=== PATIENT | female | born 1940 | race Caucasian/White ===

== ENCOUNTER → 2016-08-28 | Outpatient (CLI) | payer BC ==
[~2016-08-28] MED LIST: ACYC-57 PO; BROM0.07 OPR; CHOL1CAP57 PO; COEN1CAP37 PO; CYAN100020 PO; MISCCAP80 PO; MULT-506 PO; SIMV20TA2 PO
== END | disposition home or self-care (01) ==
LOC: C.RDSM 10:58
PROVIDERS: ATTEND Physical Medicine & Rehabilitation Sports Medicine
DX: M25.561 Pain in right knee (principal)

== ENCOUNTER → 2016-11-14 | Outpatient (CLI) | payer BC ==
[~2016-11-14] MED LIST changes: -ACYC-57 PO; +ACYC1CAP8 PO; +OPTIRAY 320 IV PRN
--- NOTE | 2016-11-14 10:45 | DIAGNOSTIC IMAGING REPORT ---
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 Images are reviewed in the axial, sagittal, and coronal planes. IV contrast was administered without complication. A dose lowering technique was utilized adhering to the principles of ALARA. CT DOSE: 733.70 mGy.cm FINDINGS: Thyroid: There is a 3 mm hypodense left lobe thyroid nodule. Thoracic aorta: The thoracic aorta is normal in course and caliber, noting standard 3-vessel arch anatomy. No aneurysm or dissection is seen. Pulmonary vasculature: The pulmonary trunk is normal in caliber. There are no central filling defects identified to suggest pulmonary embolus. Note that this examination was not protocoled for the evaluation of pulmonary emboli. HEART: The heart is normal in size and configuration, without pericardial effusion. Lungs and pleural spaces: No pleural effusions are visualized. There is no focal pulmonary consolidation. There is a stable 4 x 2 mm right upper lobe pulmonary nodule as visualized in image #[id number]. There is a 5 x 2 mm right upper lobe pulmonary nodule as visualized in image #[id number]. This was likely present on the prior study but is difficult to evaluate due to respiratory motion on the prior examination Mediastinum: There is no mediastinal lymphadenopathy. Angy: There is no evidence of pathologic adenopathy Axilla: There is no evidence of pathologic adenopathy Upper abdomen: Partially visualized upper abdominal viscera is within normal limits. Skeletal structures: There are no lytic or blastic osseous lesions. IMPRESSION: No acute intrathoracic findings. No evidence of pathologic adenopathy. Electronically signed by: Zack Shaw M.D. 11/14/2016 10:44 AM Dictated Date/Time: 11/14/2016 10:39 AM
--- NOTE | 2016-11-14 10:47 | DIAGNOSTIC IMAGING REPORT ---
CT SCAN OF THE ABDOMEN AND PELVIS WITH IV CONTRAST CLINICAL HISTORY: Lymphoma. COMPARISON STUDY: Abdominal CT dated 11/22/2015. PET/CT dated 09/28/2013. TECHNIQUE: Following the IV administration of 119 cc of Optiray 320, CT scan of the abdomen and pelvis is performed from the lung bases to the proximal femora. Images are reviewed in the axial, sagittal, and coronal planes. IV contrast was administered without complication. Automated dose control exposure was utilized. A dose lowering technique was utilized adhering to the principles of ALARA. FINDINGS: Lung bases: The heart is normal in size and without pericardial effusion. A 1.8 cm right-sided pericardial cyst is incidentally noted and unchanged. The lung bases are clear. Liver: The contrast-enhanced liver is normal in size, contour, and attenuation. There is no intrahepatic biliary ductal dilatation. The hepatic veins and portal veins are patent. Gallbladder: Contracted. Spleen: Normal in size and attenuation common measuring 10.7 cm in length. Pancreas: Unremarkable. Adrenal glands: A 1.3 cm left adrenal nodule is unchanged from prior examinations an abdominal significance. The right adrenal gland is unremarkable. Kidneys: The contrast enhanced kidneys are normal in size and without hydronephrosis. The kidneys enhance symmetrically. Abdominal vasculature: The abdominal aorta is normal in course and caliber noting mild to moderate atherosclerotic calcification. Bowel: The small bowel and colon are normal in course and caliber. There is moderate colonic fecal retention. The appendix is well-visualized and normal. Peritoneum: There is no intraperitoneal free air or abdominal ascites. Lymphadenopathy: No pathologically enlarged lymph nodes are identified in the abdomen or pelvis. Mild stranding the retroperitoneal region is likely treatment related. Pelvic viscera: The bladder, uterus, and adnexa are normal as imaged. Skeletal structures: The skeletal structures are osteopenic. There is mild to moderate lumbosacral spondylosis. No lytic or blastic lesions are seen. IMPRESSION: 1. There are no pathologically enlarged lymph nodes identified in the abdomen or pelvis. 2. The spleen is normal in size. 3. Moderate constipation. Electronically signed by: Shukri Mcleod M.D. 11/14/2016 10:45 AM Dictated Date/Time: 11/14/2016 10:37 AM
== END | disposition home or self-care (01) ==
LOC: C.CTS 09:08
PROVIDERS: ATTEND Internal Medicine Hematology
DX: C82.18 Follicular lymphoma grade II, lymph nodes of multiple sites (principal); K59.00 Constipation, unspecified

== ENCOUNTER → 2016-12-17 | Outpatient (CLI) | payer BC ==
[~2016-12-17] MED LIST changes: -OPTIRAY 320 IV PRN
--- NOTE | 2016-12-17 14:42 | DIAGNOSTIC IMAGING REPORT ---
RIGHT HIP UNILATERAL 2 VIEWS CLINICAL HISTORY: Right hip pain. COMPARISON: Skeletal survey December 26, [address] of the abdomen and pelvis November 14, 2016. FINDINGS: Alignment of the right hip is anatomic. No fracture or suspicious lesion is present. There is moderate joint space narrowing and osteophytosis the right hip. IMPRESSION: 1. No acute fracture. 2. Moderate osteoarthritis of the right hip. Electronically signed by: Sidney Kidd M.D. 12/17/2016 2:41 PM Dictated Date/Time: 12/17/2016 2:40 PM
== END | disposition home or self-care (01) ==
LOC: C.RADBC 14:20
PROVIDERS: ATTEND Family Medicine
DX: M25.551 Pain in right hip (principal)

== ENCOUNTER → 2017-02-19 | Outpatient (CLI) | payer BC ==
[~2017-02-19] MED LIST changes: +ACYC-57 PO; -ACYC1CAP8 PO
== END | disposition home or self-care (01) ==
LOC: C.MAMM 13:28
PROVIDERS: ATTEND Family Medicine
DX: M85.89 Other specified disorders of bone density and structure, multiple sites (principal)

== ENCOUNTER → 2017-02-25 | Outpatient (CLI) | payer BC ==
--- NOTE | 2017-02-26 15:09 | MAMMOGRAPHY REPORT ---
BILATERAL DIGITAL SCREENING MAMMOGRAM TOMOSYNTHESIS WITH CAD: 02/25/2017 CLINICAL HISTORY: Routine screening. Patient has no complaints. TECHNIQUE: Breast tomosynthesis in addition to standard 2D mammography was performed. Current study was also evaluated with a Computer Aided Detection (CAD) system. COMPARISON: Comparison is made to exams dated: 02/20/2016 mammogram, 02/16/2015 mammogram, 4 mammogram, 02/12/2013 mammogram, 02/12/2012 mammogram, and 02/08/2011 mammogram - [facility]. BREAST COMPOSITION: The tissue of both breasts is heterogeneously dense, which may obscure small mas ses. FINDINGS: The parenchymal pattern is similar to prior mammograms. There are a few stable benign calc ifications in the breasts. No new suspicious mass, architectural distortion or cluster of microcalci fications is seen. The hub of the Port-A-Cath projects over the superior left pectoralis muscle on t he MLO view. IMPRESSION: ACR BI-RADS CATEGORY 1: NEGATIVE There is no mammographic evidence of malignancy. A 1 year screening mammogram is recommended. The pa tient will receive written notification of the results. Approximately 10% of breast cancers are not detected with mammography. A negative mammographic report should not delay biopsy if a clinically suggestive mass is present. Michelle Olguin M.D. ay/:02/25/2017 16:15:54 [place] Grinder: Narda [facility](Migel)(Naresh)(BD), [facility] letter sent: Normal 1/2 BI-RADS Code: ACR BI-RADS Category 1: Negative
== END | disposition home or self-care (01) ==
LOC: C.MAMM 13:15
PROVIDERS: ATTEND Family Medicine
DX: Z12.31 Encounter for screening mammogram for malignant neoplasm of breast (principal)

== ENCOUNTER → 2017-08-22 | Outpatient (CLI) | payer BC ==
--- NOTE | 2017-08-22 10:35 | DIAGNOSTIC IMAGING REPORT ---
SOFT TISS HEAD/NECK-THYROID CLINICAL HISTORY: 76 years-old Female with NECK MASS. Acute swelling of the neck COMPARISON: CT chest 11/14/2016 TECHNIQUE: Multiple real time sonographic images of the thyroid were obtained accessing burnett scale appearance and color doppler flow. FINDINGS: The area of concern within the midline inferior neck demonstrates no focal abnormality. MEASUREMENTS: Right lobe: 5.1 x 2.0 x 1.6 cm Left lobe: 5.3 x 1.5 x 1.6 cm Isthmus: 0.5 cm PARENCHYMA: The thyroid parenchymal echotexture is generally homogeneous. NODULES: Hypoechoic foci measuring up to 2 mm suggest colloid cysts without suspicious nodules identified. Hypoechoic circumscribed homogeneous vascular nodule of the mid pole left thyroid measures 0.8 x 0.5 x 0.7 cm. Probable colloid cyst of the upper left thyroid measures 0.4 cm. No suspicious nodules seen within the left thyroid. IMPRESSION: Subcentimeter colloid cysts and a low suspicion 8 mm solid hypoechoic left thyroid nodule are noted without suspicious thyroid nodules identified. The above report was generated using voice recognition software. It may contain grammatical, syntax or spelling errors. Electronically signed by: Dharmesh Mckeon M.D. 08/22/2017 10:34 AM Dictated Date/Time: 08/22/2017 10:29 AM
== END | disposition home or self-care (01) ==
LOC: C.ULTR 09:58
PROVIDERS: ATTEND Family Medicine
DX: R22.1 Localized swelling, mass and lump, neck (principal); E04.2 Nontoxic multinodular goiter

== ENCOUNTER → 2017-10-17 | Outpatient (CLI) | payer BC ==
[2017-10-17 10:50] LABS: EOS % 2.7 %; EOS ABS # 0.06 K/uL (0-0.5); HEMOGLOBIN 12.8 g/dL (12.0-16.0); LYMPH % 39.5 %; LYMPH ABS # 0.88 K/uL (1.2-3.4); MEAN CORPUSCULAR HEMOGLOBIN 34.6 pg (25-34); MEAN CORPUSCULAR HGB CONC 34.6 g/dl (32-36); MEAN PLATELET VOLUME 8.9 fL (7.4-10.4); MONO % 12.1 %; MONO ABS # 0.27 K/uL (0.11-0.59); NEUT % 45.7 %; NEUT ABS # 1.02 K/uL (1.4-6.5); PLATELET COUNT 121 K/uL (130-400); RED CELL DISTRIBUTION WIDTH CV 13.5 % (11.5-14.5); RED CELL DISTRIBUTION WIDTH SD 48.7 fL (36.4-46.3); WHITE BLOOD COUNT 2.23 K/uL (4.8-10.8)
[2017-10-17 11:30] LABS: ALBUMIN 3.7 gm/dl (3.4-5.0); ALKALINE PHOSPHATASE 63 U/L (45-117); ALT/SGPT 13 U/L (12-78); AST/SGOT 14 U/L (15-37); BLOOD UREA NITROGEN 15 mg/dl (7-18); CALCIUM 8.9 mg/dl (8.5-10.1); CARBON DIOXIDE 29 mmol/L (21-32); CREATININE 0.89 mg/dl (0.60-1.20); GLUCOSE 88 mg/dl (70-99); POTASSIUM 4.1 mmol/L (3.5-5.1); SODIUM 139 mmol/L (136-145); TOTAL PROTEIN 6.8 gm/dl (6.4-8.2)
--- NOTE | 2017-11-03 14:09 | CODING QUERY NO DIAGNOSIS ---
TREATMENT RENDERED WITHOUT A DIAGNOSIS To promote full compliance with coding requirements relating to patient care, physician participation is requested in all cases of water softener installer uncertainty. Please assist us with providing a diagnosis/symptom for the test(s) below: A diagnosis/symptom was not documented on your Order. A valid diagnosis/symptom is required to bill all insurances. Please remember that we are unable to code a diagnosis of rule out, probable, possible, questionable, or suspected. Tests that require a diagnosis: DOS: 10/17/17 * CBC W/ AUTO DIFF DIAGNOSIS: * CMP DIAGNOSIS: * IMMUNOGLOBULIN G,A,M DIAGNOSIS: * LDH DIAGNOSIS: Provider Signature: Date: Thank you Jaja Fatima Health Information Management Once completed, please kindly fax back to [phone] For questions please call [phone]
== END | disposition home or self-care (01) ==
LOC: C.LABSPEC 10:36
PROVIDERS: ATTEND Internal Medicine Hematology & Oncology
DX: C82.83 Other types of follicular lymphoma, intra-abdominal lymph nodes (principal); D80.1 Nonfamilial hypogammaglobulinemia

== ENCOUNTER 2019-12-31 06:10 | Observation (INO) ==
--- NOTE | 2019-12-03 10:35 | PAT Medication Instructions ---
Medication Instructions Date of Service December 03, 2019 Home Medications Bacillus coagulans 10 billion cell capsule,delayed release 30 cell PO QAM cholecalciferol (vitamin D3) 50 mcg (2,000 unit) capsule 2,000 units PO QAM cinnamon bark 500 mg capsule 1,000 mg PO QAM multivitamin 1 tab PO QAM simvastatin 20 mg tablet 20 mg PO QAM omega 6-cjf-mxt-fish oil 1,000 mg (120 mg-180 mg) capsule 1 cap PO QAM coenzyme Q10 [Co Q-10] 200 mg PO QAM cyanocobalamin (vitamin B-12) 1,000 mcg PO QAM STOP taking 2 weeks before surgery (or as soon as possible if surgery is within 2 weeks) cinnamon bark 500 mg capsule 1,000 mg PO QAM omega 8-ahr-rug-fish oil 1,000 mg (120 mg-180 mg) capsule 1 cap PO QAM coenzyme Q10 [Co Q-10] 200 mg PO QAM DO NOT take the morning of surgery Bacillus coagulans 10 billion cell capsule,delayed release 30 cell PO QAM cholecalciferol (vitamin D3) 50 mcg (2,000 unit) capsule 2,000 units PO QAM multivitamin 1 tab PO QAM cyanocobalamin (vitamin B-12) 1,000 mcg PO QAM Take morning of surgery With a small sip of water, OTHERWISE NOTHING TO EAT OR DRINK AFTER MIDNIGHT: simvastatin 20 mg tablet 20 mg PO QAM Other Notes If you have any questions please call us at [phone] or [phone] or [phone] or [phone]
--- NOTE | 2019-12-08 14:53 | Anesthesiology Consultation ---
Date of Service December 08, 2019 Assessment & Plan (1) Encounter for pre-operative examination: COVID Status: As of 12/07 assessment, patient denies travel to endemic area, known exposure/sick contacts, or symptoms of COVID19. Patient instructed that they and their household members must follow strict social distancing guidelines, wear a mask in public and avoid travel for 14 days prior to surgery. Preoperative COVID19 testing to be completed prior to surgery per surgeon's arr angements. Patient made aware to self-isolate as much as possible between COVID testing and surgery. Patient's A-port is currently occluded and is to be replaced 12/13 at [facility]. Chart Review Chart Review: Acceptable Risk for Surgery (pending surgeon-ordered PCP clearance) and Patient seen in Pre Admission Testing Teaching & Discussion Instructed NPO after midnight before surgery, except medications with 15 cc of water. Medication instructions provided according to the PAT guidelines. History Surgery Operation Date: 12/31/19 08:15 Proposed Procedures p Right Total Hip Arthroplasty - Andrzej Greco MD Height/Weight Height: 5 ft 7 in Weight: 84.7 kg Allergies Allergy/AdvReac Type Severity Reaction Status Date / Time acetaminophen Allergy Mild VOMITING Verified 12/01/19 15:51 WITH PERCOCET - OKAY TYLENOL oxycodone Allergy Mild VOMITING Verified 12/01/19 15:51 amoxicillin AdvReac Mild diarrhea Verified 12/01/19 15:51 clavulanic acid AdvReac Mild diarrhea Verified 12/01/19 15:51 lisinopril AdvReac Mild GI SYMPTOMS Verified 12/01/19 15:51 losartan AdvReac Mild GI SYMPTOMS Verified 12/01/19 15:51 paroxetine AdvReac Mild GI SYMPTOMS Verified 12/01/19 15:51 Medications Home Medications Medication Instructions Recorded Confirmed Last Taken Bacillus coagulans 10 billion cell 30 cell PO QAM cap 02/04/19 12/01/19 Unknown capsule,delayed release cholecalciferol (vitamin D3) 50 2,000 units PO QAM 02/04/19 12/01/19 Unknown mcg (2,000 unit) capsule cinnamon bark 500 mg capsule 1,000 mg PO QAM cap 02/04/19 12/01/19 Unknown multivitamin 1 tab PO QAM 02/04/19 12/01/19 Unknown simvastatin 20 mg tablet 20 mg PO QAM 02/04/19 12/01/19 Unknown omega 6-lgx-krs-fish oil 1,000 mg 1 cap PO QAM 11/04/19 12/01/19 Unknown (120 mg-180 mg) capsule coenzyme Q10 [Co Q-10] 200 mg PO QAM 11/30/19 12/01/19 Unknown cyanocobalamin (vitamin B-12) 1,000 mcg PO QAM 11/30/19 12/01/19 Unknown Past Medical History Medical History Acquired immunoglobulin deficiency CAD (coronary artery disease) Follows with Dr. Siegel- per records- LAD 50% lesion- medically managed History of chemotherapy finished in 2013 > port to left chest > with new one to be placed dec [address] cruz Hx of non-Hodgkin's lymphoma Remission since 2013 Hyperlipidemia Hypertension Per records Long-term current use of intravenous immunoglobulin (IVIG) Every 8 weeks at [facility] Pedal edema Chronic Port-A-Cath in place left chest wall. Currently occluded and to have replaced on 12/[address] Cruz at [facility]. Previously placed for chemotherapy for lymphoma, now uses for IVIG treatments. Thyroid nodule just had checked recently Exercise / Class Metabolic Activity II 4-5 Yardwork/Stairs/Walk up hill (Has 28 steps in her townhouse, does daily without CP or SOB) Past Family History Family History Father , age 88 with dementia Pituitary tumor Endocrine problem Dementia Mother , age 90 of ITP Anemia Colorectal cancer Grandmother (Maternal) Heart trouble Grandfather (Maternal) Lung cancer Past Surgical History Surgical History History of bilateral fallopian tube excision History of cardiac cath 2011 due to a finding on stress test > no stents History of colonoscopy History of esophagogastroduodenoscopy (EGD) S/P cataract surgery bilat S/P ectopic S/P surgical removal of pilonidal cyst (1963) 1964 S/P tooth extraction wisdom teeth Past Anesthesia History No Hx of Anesthesia Complications and No Family Hx of Anesthesia Complications History of PONV No Hx of PONV and No Hx of Motion Sickness Social History Smoking Status: Former smoker tobacco type: cigarettes Do You Dip or Chew Tobacco: No Smoking End Date: 50 yrs ago Hx Alcohol Use: Yes Alcohol type: wine alcohol intake frequency: a few times a week Hx Substance Use: No substance use type: does not use Review of Systems Pt denies any recent chest pain, shortness of breath, palpitations, cough, fever, URI, or uncontrolled acid reflux. Physical Exam Vital Signs BP: 124/84 P: 63bpm SPO2: 97% RA T: 97.8 F R: 16 ENMT Mouth: + dental restorations (2-3 crowns, including upper incisors); no chipped teeth and no loose teeth Thyromental Distance: < 3.5 Finger Breadths (3) Mallampati Class: II Neck normal visual inspection; neck extension not limited Respiratory normal respiratory effort Auscultation: lungs clear to auscultation bilaterally Cardiovascular Rate/Rhythm: regular rate and regular rhythm Heart Sounds: no murmur Vessels: no carotid bruit Extremities: + edema (trace pedal B/L) Testing Laboratory Results 12/08/19 15:05 12/08/19 15:05 PT 10.9 Seconds (9.0-12.0) 12/08/19 15:05 INR 1.0 (0.9-1.1) 12/08/19 15:05 Hemoglobin A1c 5.6 % (4.5-5.6) 12/08/19 15:05 Urine Color Yellow 12/08/19 15:05 Urine Appearance Clear (Clear) 12/08/19 15:05 Urine pH 5.0 (4.5-7.5) 12/08/19 15:05 Ur Specific [place] 1.014 (1.000-1.030) 12/08/19 15:05 Urine Protein Negative (Negative) 12/08/19 15:05 Urine Glucose (UA) Negative (Negative) 12/08/19 15:05 Urine Ketones Negative (Negative) 12/08/19 15:05 Urine Nitrite Negative (Negative) 12/08/19 15:05 Ur Leukocyte Esterase Negative (Negative) 12/08/19 15:05 Blood Type A Positive 12/08/19 15:05 Antibody Screen NEGATIVE 12/08/19 15:05 Electrocardiogram Date: 12/08/19 Findings: + NSR @ (62bpm)
[2019-12-08 16:35] LABS: Basophils # (auto) 0.01 K/uL (0-0.2); Basophils % (auto) 0.3 %; Eosinophils # (auto) 0.03 K/uL (0-0.5); Eosinophils % (auto) 0.9 %; Hemoglobin 13.6 g/dL (12.0-16.0); Immature Granulocytes # (auto) 0.01 K/uL (0.00-0.02); Immature Granulocytes % (auto) 0.3 %; Lymphocytes # (auto) 0.95 K/uL (1.2-3.4); Lymphocytes % (auto) 29.6 %; Mean Corpuscular Hemoglobin 34.1 pg (25-34); Mean Corpuscular Hgb Conc 34.9 g/dL (32-36); Mean Corpuscular Volume 97.7 fL (80-100); Mean Platelet Volume 9.5 fL (7.4-10.4); Monocytes # (auto) 0.28 K/uL (0.11-0.59); Monocytes % (auto) 8.7 %; Neutrophils # (auto) 1.93 K/uL (1.4-6.5); Neutrophils % (auto) 60.2 %; Platelet Count 132 K/uL (130-400); RDW Standard Deviation 46.4 fL (36.4-46.3); Red Blood Count 3.99 M/uL (4.2-5.4); White Blood Count 3.21 K/uL (4.8-10.8)
[2019-12-08 16:41] LABS: Appearance Urine Clear (Clear); Bilirubin Urine Negative (Negative); Blood Urine Negative (Negative); Color Urine Yellow; Glucose Urine UA Negative (Negative); Ketones Urine Negative (Negative); Leukocyte Esterase Urine Negative (Negative); Nitrite Urine Negative (Negative); Protein Urine Negative (Negative); Specific Gravity Urine 1.014 (1.000-1.030); Urobilinogen Urine Negative (Negative)
[2019-12-08 16:46] LABS: Prothrombin Time 10.9 Seconds (9.0-12.0)
[2019-12-08 16:50] LABS: Albumin Level 3.8 gm/dl (3.4-5.0); BUN Creatinine Ratio 27.7 (10-20); Calcium 9.4 mg/dl (8.5-10.1); Creatinine Clr Calc Pharmacy 53.6 ml/min; Est GFR (African American) 67.7; Est GFR (Non-African American) 58.4; Potassium 3.9 mmol/L (3.5-5.1)
[2019-12-08 16:53] LABS: Albumin Globulin Ratio 1.1 (0.9-2); Bilirubin,Total 0.6 mg/dl (0.2-1); Globulin 3.4 gm/dl (2.5-4.0); Total Protein 7.2 gm/dl (6.4-8.2)
--- NOTE | 2019-12-08 18:22 | Electrocardiogram Report ---
Test Reason : Blood Pressure : / mmHG Vent. Rate : 062 BPM Atrial Rate : 062 BPM P-R Int : 168 ms QRS Dur : 090 ms QT Int : 424 ms P-R-T Axes : 057 034 055 degrees QTc Int : 430 ms Normal sinus rhythm Normal ECG When compared with ECG of 17-JUL-2014 19:48, Vent. rate has decreased BY 30 BPM Confirmed by Raul Laguerre ([id number]) on 12/08/2019 6:21:31 PM Referred By: Andrzej Greco Confirmed By:All Laguerre
[2019-12-09 05:53] LABS: Estimated Average Glucose 114 mg/dl; Hemoglobin A1C 5.6 % (4.5-5.6)
--- NOTE | 2019-12-09 09:36 | History & Physical Report ---
Date of Service December 09, 2019 Assessment & Plan (1) Osteoarthritis of right hip: PRE-OP Diagnosis: Right hip osteoarthritis Planned Procedure: Right total hip arthroplasty Plan: Patient is scheduled to undergo this procedure at the [facility] with Dr. Andrzej Greco on December 31, 2019. Risks and complications of the procedure such as: Infection, bleeding, pain, scarring, nerve blood vessel damage, weakness, wound problems, stiffness, incomplete relief of symptoms, hardware failure, hardware loosening, wear, fracture, tendon or ligament injury, dislocation, leg length inequality, blood clots, embolism, heart attack, stroke and were explained the patient had a visit today by Dr. Greco. Informed consent for the procedure was obtained. Patient also understands the risks of proceeding with surgical intervention during the COVID- 19 pandemic. Currently patient is asymptomatic and understands that she will be tested for COVID prior to the procedure. We have obtained preoperative medical clearance medications primary care provider Dr. Price. We will obtain a CBC with differential, complete metabolic panel, PT/INR, blood type and screen, urinalysis, urine culture, EKG, hemoglobin A1c, and a nasal culture for MRSA. Patient states she will obtain this testing prior to her preanesthesia appointment at the hospital this afternoon. During today's visit the patient and I discussed total hip precautions. We went over the total hip packet. We talked about discharge planning. Patient and I discussed antibiotic use after total joint replacement surgery. I advised her that the [facility] provides lectures via zoom in regards to joint placement surgery. I provided her with paperwork to obtain a handicap placard for her vehicle. Patient states that she has a walker she will bring with her on the day of her procedure. I advised her to purchase a hip kit from either [employer] or [employer]. We discussed abduction pillow use for 6 weeks postoperatively. I advised her that I will discharge her with a prescription for narcotic pain medication, and anti- inflammatory, and we discussed the use of extra strength Tylenol and aspirin for DVT prophylaxis. Patient states she would like to be discharged home if she does well with therapy, and will prefer to have in-home therapy for the first 2 weeks postoperatively. Patient is scheduled for 2-week postoperative follow-up with myself on January 15, 2020 at 1 PM. At that appointment we will discuss outpatient physical therapy and provide her with rehab protocol. Patient and her verbalized understanding of all information provided during today's visit. They thanked us for the care that they received. Patient and state if they have questions or concerns prior to the procedure, they will contact clinic. History of Present Illness Chief Complaint: Right hip pain Primary Care Provider: Pierre Price History of Present Illness (including history relevant to procedure): This 79-year-old female presents the clinic today for preoperative history and physical examination. Patient has persistent pain in the groin of the right hip that is nonradiating. It bothers her especially getting in and out of a car. Walking long distances are difficult for her. Inclines are worse for her than declines. She has tried taking NSAIDs and received multiple steroid injections into her hip under ultrasound guidance, both of which have given her only minimal relief. She denies any numbness or tingling, but states that she is having great difficulty performing activities of daily living due to hip pain. 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 Rectocele PERSONAL HISTORY OF COLONIC POLYPS UNSPECIFIED HEARING LOSS RAYNAUD'S SYNDROME Overweight BACK PAIN, CHRONIC ROUTINE GENERAL MEDICAL EXAMINATION AT A HEALTH CARE FACILITY History of dysplastic nevus Mixed dyslipidemia Cataract CAD (coronary artery disease), [place] coronary artery Former smoker Arthritis Pre-diabetes Family history of colon cancer Glaucoma suspect Hx of thyroid nodule History of basal cell carcinoma Hx of seborrheic keratosis Cystocele Spondylolisthesis Lumbar spine pain Senile hyperkeratosis Benign neoplasm of skin Actinic keratosis Carpal tunnel syndrome, bilateral Ulnar neuropathy Osteopenia Procedure History Procedure Procedure Date Comments Salpingo-oophorectomy - left, at time of ruptured ectopic, with IUD in; 1971 pilonidal cystectomy wisdom teeth Chemotherapy Shave biopsy and cauterization of skin 10/19/2019 DXA of axial and appendicular skeleton 03/26/2019 - IMPRESSION: Z-sore of 0.0, this patients BDM is considered within nomral limits relative to their age, Even so, they may be considered osteopenic or osteoporotic, which is normal for this age. Mammogram - screening 03/02/2019 - IMPRESSION: No mammographic evidence of malignancy. 1 year screening is recommended Upper GI endoscopy 07/15/2018 - IMPRESSION: 1) Z-line regular, 41 cm from the incisors2) Normal esophagus3) Normal middle third of esophagus. Biopsied4) Normal stomach5) Normal examined duodenum Electrodesiccation with curettage 07/10/2018 Shave biopsy of skin 06/30/2018 Mammogram - screening 02/26/2018 - Impression: No mammographic evidence of malignancy. 1 year screening is recommended Chest x-ray 09/21/2017 - No acute process Ultrasound 08/22/2017 - SOFT TISSUE HEAD/NECK THYROIDIMPRESSION: Subcentimeter colloid cysts and a low suspicion 8mm solid hypoechoic left thyroid nodule are noted without suspicous thyroid nodules. Punch biopsy of skin 07/04/2017 Colonoscopy 06/28/2017 Colonoscopy 06/20/2017 - IMPRESSION: One 5 mm polyp in the ascending colon, removed with a hot snare. Resected and retrieved. The examined portion of the ileum was normal. Biopsied.Normal mucosa in the entire examined colon. Biopsied. Mammogram 02/25/2017 - No mammogoraphic evidence of malignancy. A 1 year screening mammogram is recommended. Chest CT 11/14/2016 - No acute intrathoracic findings. No evidence of pathologic adenopathy. CT of abdomen and pelvis 11/14/2016 - 1. There are no pathologically enlargel lymph nodes identified in the abdomen or pelvis.2. The spleen is normal size.3. Moderate constipation. Mammogram - screening 02/20/2016 - Impression: There is no mammographic evidence of malignancy. A 1 year screening mammogram is recommended. The patient will receive written notification of the results. Phacoemulsification of cataract with intraocular lens implantation of the Left eye 01/31/2016 Skeletal survey - adult 12/26/2015 - Impression: No overtly suspicious lytic lesions identified by skeletal survey. A few nonspecific but low suspicion lucent lesions within the calvarium. Phacoemulsification with intraocular lens implantation right eye 12/20/2015 CT of abdomen and pelvis 11/22/2015 - 1. Question of multiple tiny lucent lesions seen scattered throughout the visualized osseous structures. However, this could be due to the patient's osteopenia. Recommend f/u skeletal survey to exclude a multiple myeloma.2. Otherise, no acute process within the abdomen or pelvis.3. No lymphadenopathy. CT of chest 11/22/2015 - Negative study. Improved from the prior exam. Thyroid imaging--ultrasound 10/28/2015 - Multinodular throid gland. No susupicious nodules are visualized. CXR - Chest X-ray 09/21/2015 - No acute process. Colonoscopy 02/23/2015 - Impression: One 8 mm polyup in the descending colon. Resected and retrieved.Recommendations: Await pathology results. Mammogram - screening 02/16/2015 - Impression: There are no mammographic evidence of malignancy. A 1 year screening mammogram is recommended. The patient will receive written nbotification of the results. Pap smear for cervical cancer screening 01/26/2015 - Diagnosis: negative for intraepithelial lesion or malignancy Biopsy--bone marrow biopsy right hip 10/06/2014 PET scan 10/04/2014 - Pet CT:Impression: There is no FDG avid lymphadenopathy identified on todays examination. There has been no significant change from 01/25/2014.Retroperitoneal infiltration/soft tissue stranding is similar to previous and likely reflects treated disease. There is no discernible FDG uptake at the site.The lungs are clear.The spleen is normal in size.Additional changes as above. Bone marrow 09/30/2014 - 20% celluar bone marrow with trilineage hematopoiesisNo lymphorm identified Chest x-ray 09/27/2014 - Impression: no active disease in the chest Chest x-ray 08/16/2014 - Impression: near complete resolution of small bilateral pleural effusions shown on prior examInterval improvements in suspected pulmonary edema. Chest x-ray 08/01/2014 - Impression: Small bilateral pleural effusions with mild interiobular septal thickening consistent with mild pulmonary edema.Mild bibasilar opacilitties. The appearance favors atelectasis, although pneumonia could appear similar. Chest x-ray 07/30/2014 - 1) slighlty improved B/L plueral effusions.2) Subtle progressive infilitrate right hemithorax Chest x-ray 07/26/2014 - Impression: Small pleural effusions and bibasilar consolidative change. This could reflect pneumonia as clinically queried. Radiographic follow-up to resolution is recommended.Chronic parenchymal abnormalities as above. The upper lobes appear clear. Chest x-ray 07/23/2014 - a/p portable chest Impression: No pneumothoraxBibasilar subsegmental atelectasisRight infrahilar hazy opacity which may be due to the post bronchoscopy changes. Bronchial brushings sample 07/23/2014 - Benign bronchial epitheliumNo lymphoid infiltrate identified.No fungal organisms or pneuocystis identified on gms stainNo malignant cells seen. Bronchial washing 07/23/2014 - Benign bronchial epithelium.No lymphoid infiltrate or inflammation identifiedNo malignant cells seen. Chest x-ray 07/22/2014 - Impressions: Improving bibasilar linear densities suggesting resolving subsegmental atelectasis. No new focal lung consolidations identified. Echocardiogram 07/21/2014 Chest x-ray 07/19/2014 - Impression: Linear bibasilar opacities consistent with atelectasis.Hazy right basilar opacities. While indeterminate, this probably represents atelectasis rather than pneumonia. Procedure 07/19/2014 - CT aniogram of the chestImpression: No definite evidence for pulmonary embolus.Interlobular septal thickening and faint ground-glass perihilar airspace opacities. Findings favor a mild interstitial pulmonary edema. However, an atypical pneumonia could also have a similar appearance.Linear bibasilar densities favor subsegmental atelectasis.A few prominent mediastinal lymph nodes which havew increased in size compared to the prior study. However, theese still remain subcentimeter in short axis diameter. Follow-up is recommended to exclude the possibility of recurring lymphoma. Chest x-ray 07/17/2014 - No acute process Knee X-ray 07/04/2014 - Chronic appearing changes. No acute fracture or dislocation. Chest x-ray 06/24/2014 - normal Mammogram 02/15/2014 - No malginancy. One year screening recommended. Epidural steroid injection 11/11/2013 - Caudal VEENA Insertion of implantable venous access port 2013June 2013 Bone marrow biopsy 06/09/2013 Mammogram 02/12/2013 - WNL DEXA 07/03/2010 - -1.5 in both femurs Colonoscopy & polypectomy 04/18/2010 - hyperplastic polyp sigmoid Mohs surgery 2006 - nose and left jawline, for SCC and BCC colonoscopy normal 05/04/2005 - clear Birthmark 1971 - left scalp - excision Allergies and Sensitivities: Percocet 5/325(N/V) Augmentin(Diarrhea) Paxil(tachycardia) Paxil(nervous) Paxil(revved up) Paxil(insomnia) losartan(dizziness, cotoney mouth, didn't feel well.) lisinopril(cough) Social history: Patient states she consumes approximately 5 alcoholic beverage per week. At this time she denies any tobacco or illicit drug use Family history: Alzheimer's disease, cancer, dementia, myocardial infarction, hypertension, hyperlipidemia, hypothyroidism, rheumatic heart disease, stroke and thrombocytopenia Current Home Meds: (Last Updated 12/07 12:55) Probiotic Intestinal PO Daily(Vitamin D3 2000 intl units oral tablet) 2,000 Int_Unit PO Daily(Cinnamon 500 mg oral capsule) 500 mg PO Daily 1000mg po kate y(Vitamin B12 1000 mcg oral tablet) 1,000 mcg PO Daily multivitamin 1 tab PO Dailypolyunsaturated fatty acids (Fish Oil 1200 mg oral capsule) 1,200 mg PO Daily(simvastatin 20 mg oral tablet) TAKE 1 TABLET BY MOUTH AT BEDTIME(Coenzyme Q10 200 mg oral capsule) 1 tab PO Daily Initial Wt: 12/07 85.0 kg 187 lb Allergies Allergy/AdvReac Type Severity Reaction Status Date / Time acetaminophen Allergy Mild VOMITING Verified 12/01/19 15:51 WITH PERCOCET - OKAY TYLENOL oxycodone Allergy Mild VOMITING Verified 12/01/19 15:51 amoxicillin AdvReac Mild diarrhea Verified 12/01/19 15:51 clavulanic acid AdvReac Mild diarrhea Verified 12/01/19 15:51 lisinopril AdvReac Mild GI SYMPTOMS Verified 12/01/19 15:51 losartan AdvReac Mild GI SYMPTOMS Verified 12/01/19 15:51 paroxetine AdvReac Mild GI SYMPTOMS Verified 12/01/19 15:51 Home Medications Home Medications Medication Instructions Recorded Confirmed Type Bacillus coagulans 10 billion cell 30 cell PO QAM cap 02/04/19 12/01/19 History capsule,delayed release cholecalciferol (vitamin D3) 50 2,000 units PO QAM 02/04/19 12/01/19 History mcg (2,000 unit) capsule cinnamon bark 500 mg capsule 1,000 mg PO QAM cap 02/04/19 12/01/19 History multivitamin 1 tab PO QAM 02/04/19 12/01/19 History simvastatin 20 mg tablet 20 mg PO QAM 02/04/19 12/01/19 History omega 4-sju-xhy-fish oil 1,000 mg 1 cap PO QAM 11/04/19 12/01/19 History (120 mg-180 mg) capsule coenzyme Q10 [Co Q-10] 200 mg PO QAM 11/30/19 12/01/19 History cyanocobalamin (vitamin B-12) 1,000 mcg PO QAM 11/30/19 12/01/19 History Past Med/Surg History Medical History Acquired immunoglobulin deficiency CAD (coronary artery disease) Follows with Dr. Siegel- per records- LAD 50% lesion- medically managed History of chemotherapy finished in 2013 > port to left chest > with new one to be placed dec [address] cruz Hx of non-Hodgkin's lymphoma Remission since 2013 Hyperlipidemia Hypertension Per records Long-term current use of intravenous immunoglobulin (IVIG) Every 8 weeks at [facility] Pedal edema Chronic Port-A-Cath in place left chest wall. Currently occluded and to have replaced on 12/[address] Cruz at [facility]. Previously placed for chemotherapy for lymphoma, now uses for IVIG treatments. Thyroid nodule just had checked recently Surgical History History of bilateral fallopian tube excision History of cardiac cath 2011 due to a finding on stress test > no stents History of colonoscopy History of esophagogastroduodenoscopy (EGD) S/P cataract surgery bilat S/P ectopic S/P surgical removal of pilonidal cyst (1963) 1963 S/P tooth extraction wisdom teeth Family History Father , age 88 with dementia Pituitary tumor Endocrine problem Dementia Mother , age 90 of ITP Anemia Colorectal cancer Grandmother (Maternal) Heart trouble Grandfather (Maternal) Lung cancer Social History Smoking Status: Former smoker Number of Years Since Quit: 50; Second Hand Exposure: No; Hx Alcohol Use: Yes Alcohol type: wine Alcohol Intake Frequency Comment: 5-6 drinks of red wine per week Hx Substance Use: No Preferred Language: Gabonese Communication Ability: Effective Yeast Maker Required: No Beliefs That Will Affect Care: None Current Living Situation: Spouse current occupational status: retired other: 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. Feels Safe at Home: Yes Review of Systems All systems reviewed & are unremarkable except as noted in Subjective Physical Exam Physical Exam: Physical Exam: (relevant to the procedure, including heart and lung evaluation) General: Alert and oriented x3 with proper grooming and hygiene Eyes: Pupils are equal and react to light with accommodation. Extraocular movements are intact Throat: Deferred due to COVID-19 precautions Cardiac: Regular rate and rhythm with no murmurs or gallops appreciated Lungs: Clear to auscultation throughout with no wheezing, rales or rhonchi Abdomen: Minimally obese, nondistended, nontender with normal active bowel sounds Extremities: Right hip exam today demonstrates flexion up to 110 degrees in the sitting position. External rotation is to 40 and internal rotation to 20. Distally neurovascularly intact. Neuro: Cranial nerves II through XII are intact no motor or sensory deficit Skin: Skin is essentially normal in appearance with no open skin areas or discharge Results & Data ([facility]) Laboratory Results 12/08/19 12/08/19 12/08/19 Range/Units 15:05 15:05 15:05 WBC (4.8-10.8) K/uL RBC (4.2-5.4) M/uL Hgb (12.0-16.0) g/dL Hct (37-47) % MCV (80-100) fL MCH (25-34) pg MCHC (32-36) g/dL RDW Std Deviation (36.4-46.3) fL RDW Coeff of José (11.5-14.5) % Plt Count (130-400) K/uL MPV (7.4-10.4) fL Immature Gran % (Auto) % Neut % (Auto) % Lymph % (Auto) % [place] % (Auto) % Eos % (Auto) % Baso % (Auto) % Neut # (Auto) (1.4-6.5) K/uL Lymph # (Auto) (1.2-3.4) K/uL [place] # (Auto) (0.11-0.59) K/uL Eos # (Auto) (0-0.5) K/uL Baso # (Auto) (0-0.2) K/uL Immature Gran # (Auto) (0.00-0.02) K/uL PT (9.0-12.0) Seconds INR (0.9-1.1) Sodium 139 (136-145) mmol/L Potassium 3.9 (3.5-5.1) mmol/L Chloride 106 (98-107) mmol/L Carbon Dioxide 26 (21-32) mmol/L Anion Gap 7.0 (3-11) BUN 25 H (7-18) mg/dl Creatinine 0.92 (0.6-1.2) mg/dl Est Cr Clr Drug Dosing 53.6 ml/min Est GFR ( Amer) 67.7 Est GFR (Non-Af Amer) 58.4 BUN/Creatinine Ratio 27.7 H (10-20) Glucose 85 (70-99) mg/dl Estimat Average Glucose 114 mg/dl Hemoglobin A1c 5.6 (4.5-5.6) % Calcium 9.4 (8.5-10.1) mg/dl Total Bilirubin 0.6 (0.2-1) mg/dl AST 16 (15-37) U/L ALT 14 (12-78) U/L Alkaline Phosphatase 70 (45-117) U/L Total Protein 7.2 (6.4-8.2) gm/dl Albumin 3.8 (3.4-5.0) gm/dl Globulin 3.4 (2.5-4.0) gm/dl Albumin/Globulin Ratio 1.1 (0.9-2) Urine Color Urine Appearance (Clear) Urine pH (4.5-7.5) Ur Specific Morgan (1.000-1.030) Urine Protein (Negative) Urine Glucose (UA) (Negative) Urine Ketones (Negative) Urine Blood (Negative) Urine Nitrite (Negative) Urine Bilirubin (Negative) Urine Urobilinogen (Negative) Ur Leukocyte Esterase (Negative) Nasal Screen MRSA (PCR) Negative (Negative) Blood Type Antibody Screen 12/08/19 12/08/19 12/08/19 Range/Units 15:05 15:05 15:05 WBC 3.21 L (4.8-10.8) K/uL RBC 3.99 L (4.2-5.4) M/uL Hgb 13.6 (12.0-16.0) g/dL Hct 39.0 (37-47) % MCV 97.7 (80-100) fL MCH 34.1 H (25-34) pg MCHC 34.9 (32-36) g/dL RDW Std Deviation 46.4 H (36.4-46.3) fL RDW Coeff of José 13.0 (11.5-14.5) % Plt Count 132 (130-400) K/uL MPV 9.5 (7.4-10.4) fL Immature Gran % (Auto) 0.3 % Neut % (Auto) 60.2 % Lymph % (Auto) 29.6 % [place] % (Auto) 8.7 % Eos % (Auto) 0.9 % Baso % (Auto) 0.3 % Neut # (Auto) 1.93 (1.4-6.5) K/uL Lymph # (Auto) 0.95 L (1.2-3.4) K/uL [place] # (Auto) 0.28 (0.11-0.59) K/uL Eos # (Auto) 0.03 (0-0.5) K/uL Baso # (Auto) 0.01 (0-0.2) K/uL Immature Gran # (Auto) 0.01 (0.00-0.02) K/uL PT 10.9 (9.0-12.0) Seconds INR 1.0 (0.9-1.1) Sodium (136-145) mmol/L Potassium (3.5-5.1) mmol/L Chloride (98-107) mmol/L Carbon Dioxide (21-32) mmol/L Anion Gap (3-11) BUN (7-18) mg/dl Creatinine (0.6-1.2) mg/dl Est Cr Clr Drug Dosing ml/min Est GFR ( Amer) Est GFR (Non-Af Amer) BUN/Creatinine Ratio (10-20) Glucose (70-99) mg/dl Estimat Average Glucose mg/dl Hemoglobin A1c (4.5-5.6) % Calcium (8.5-10.1) mg/dl Total Bilirubin (0.2-1) mg/dl AST (15-37) U/L ALT (12-78) U/L Alkaline Phosphatase (45-117) U/L Total Protein (6.4-8.2) gm/dl Albumin (3.4-5.0) gm/dl Globulin (2.5-4.0) gm/dl Albumin/Globulin Ratio (0.9-2) Urine Color Yellow Urine Appearance Clear (Clear) Urine pH 5.0 (4.5-7.5) Ur Specific Morgan 1.014 (1.000-1.030) Urine Protein Negative (Negative) Urine Glucose (UA) Negative (Negative) Urine Ketones Negative (Negative) Urine Blood Negative (Negative) Urine Nitrite Negative (Negative) Urine Bilirubin Negative (Negative) Urine Urobilinogen Negative (Negative) Ur Leukocyte Esterase Negative (Negative) Nasal Screen MRSA (PCR) (Negative) Blood Type Antibody Screen 12/08/19 Range/Units 15:05 WBC (4.8-10.8) K/uL RBC (4.2-5.4) M/uL Hgb (12.0-16.0) g/dL Hct (37-47) % MCV (80-100) fL MCH (25-34) pg MCHC (32-36) g/dL RDW Std Deviation (36.4-46.3) fL RDW Coeff of José (11.5-14.5) % Plt Count (130-400) K/uL MPV (7.4-10.4) fL Immature Gran % (Auto) % Neut % (Auto) % Lymph % (Auto) % [place] % (Auto) % Eos % (Auto) % Baso % (Auto) % Neut # (Auto) (1.4-6.5) K/uL Lymph # (Auto) (1.2-3.4) K/uL [place] # (Auto) (0.11-0.59) K/uL Eos # (Auto) (0-0.5) K/uL Baso # (Auto) (0-0.2) K/uL Immature Gran # (Auto) (0.00-0.02) K/uL PT (9.0-12.0) Seconds INR (0.9-1.1) Sodium (136-145) mmol/L Potassium (3.5-5.1) mmol/L Chloride (98-107) mmol/L Carbon Dioxide (21-32) mmol/L Anion Gap (3-11) BUN (7-18) mg/dl Creatinine (0.6-1.2) mg/dl Est Cr Clr Drug Dosing ml/min Est GFR ( Amer) Est GFR (Non-Af Amer) BUN/Creatinine Ratio (10-20) Glucose (70-99) mg/dl Estimat Average Glucose mg/dl Hemoglobin A1c (4.5-5.6) % Calcium (8.5-10.1) mg/dl Total Bilirubin (0.2-1) mg/dl AST (15-37) U/L ALT (12-78) U/L Alkaline Phosphatase (45-117) U/L Total Protein (6.4-8.2) gm/dl Albumin (3.4-5.0) gm/dl Globulin (2.5-4.0) gm/dl Albumin/Globulin Ratio (0.9-2) Urine Color Urine Appearance (Clear) Urine pH (4.5-7.5) Ur Specific Morgan (1.000-1.030) Urine Protein (Negative) Urine Glucose (UA) (Negative) Urine Ketones (Negative) Urine Blood (Negative) Urine Nitrite (Negative) Urine Bilirubin (Negative) Urine Urobilinogen (Negative) Ur Leukocyte Esterase (Negative) Nasal Screen MRSA (PCR) (Negative) Blood Type A Positive Antibody Screen NEGATIVE Diagnostic Findings Studies (relevant to the procedure): Results reviewed x-rays done today 3 views of the right hip are compared with her prior films. No significant interval change on today's films compared with the prior films. She still has a very small amount of her joint space remaining superiorly. However she has peripheral osteophyte formation and joint space narrowing diffusely.
[~2019-12-31 06:10] MED LIST changes: +ACETAMINOPHEN 500 MG TAB PO SCH; -ACYC-57 PO; -BROM0.07 OPR; +CEFAZOLIN 2000MG 2,000 MG/15 ML SYR IV SCH; -CHOL1CAP57 PO; -COEN1CAP37 PO; -CYAN100020 PO; +CeleBREX 200 MG CAP PO SCH; +FAMOTIDINE 20 MG TAB PO SCH; +LR 500ML BOLUS, THEN 15ML/HR IV SCH; +LR 60ML/HR IV SCH; +METOCLOPRAMIDE HCL 10 MG TABLET PO SCH; -MISCCAP80 PO; -MULT-506 PO; +ROPIVACAINE 0.5% HCL/PF 150 MG, BUPIVACAINE 0.5% MPF 30 ML, EPINEPHrine 0.15 MG, Ketoro... INFIL SCH; +ROPIVACAINE 0.5% HCL/PF 150 MG, BUPIVACAINE 0.5% MPF 30 ML, EPINEPHrine 30MG/30ML (OR U... INSTIL SCH; -SIMV20TA2 PO; +TRAMADOL HCL 50 MG TABLET PO SCH; +TRANEXAMIC ACID 1,000 MG **IV Intra-op IV SCH; +TRANEXAMIC ACID 1,000 MG **IV Pre-op IV SCH; +dexAMETHasone 4 MG TAB PO SCH
[2019-12-31] MEDS ORDERED: BUPIVACAINE 0.5 % 5 MG/1 ML PF 10ML VIAL ONE (07:03)
[2019-12-31] MEDS ORDERED: MIDAZOLAM HCL 1 MG/ML 2ML VIAL ONE (07:32)
[2019-12-31] MEDS ORDERED: PROPOFOL IV EMULSION 10 MG/ML 20 ML VIAL IV ONE (07:33)
[2019-12-31] MEDS ORDERED: ONDANSETRON INJ 2 MG/ML 2 ML VIAL ONE (07:33)
[2019-12-31] MEDS ORDERED: LIDOCAINE HCL 2% 2 ML VIAL/AMP(20MG/ML) INFIL ONE (07:33)
[2019-12-31] MEDS ORDERED: fentaNYL citrate 100 MCG/2 ML VIAL ONE (07:41)
[2019-12-31] MEDS ORDERED: DEXAMETHASONE SOD INJ 4 MG/ML VIAL ONE (07:42)
[2019-12-31] MEDS ORDERED: HYDROmorphone INJ 1 MG/ML SYRINGE IV PRN (07:55)
[2019-12-31] MEDS ORDERED: KETOROLAC 30 MG/ML VIAL IV PRN (07:55)
[2019-12-31] MEDS ORDERED: ONDANSETRON INJ 2 MG/ML 2 ML VIAL IV PRN ×2 (07:55→10:40)
[2019-12-31] MEDS ORDERED: ePHEDrine sulfate 50 MG/ML AMP IV PRN (07:55)
[2019-12-31] MEDS ORDERED: ATROPINE SULFATE 0.1 MG/ML 10ML SYR IV PRN (07:55)
[2019-12-31] MEDS ORDERED: ORTHO JOINT ANESTHETIC ONE (08:02)
--- NOTE | 2019-12-31 08:02 | History & Physical Bridge Note ---
Date of Service December 31, 2019 History & Physical Bridge Note I have examined the patient, reviewed the History & Physical and in the interval since the performance of the History & Physical I have noted the following changes of clinical significance: no changes noted. We spoke about advantages/disadvantages of cemented vs. cementless fixation of her femur, and I recommend cement to reduce risk of fracture and for antibiotics given her immunodeficiency/risk for infection, and she agrees.
[2019-12-31] MEDS ORDERED: METOCLOPRAMIDE HCL INJ 5 MG/ML 2 ML VIAL IV PRN (10:40)
[2019-12-31] MEDS ORDERED: NALOXONE HCL 0.4 MG/1 ML VIAL/CARP IV PRN (10:40)
[2019-12-31] MEDS ORDERED: DiphenhydrAMINE HCL 50 MG/ML VIAL IV PRN (10:40)
[2019-12-31] MEDS ORDERED: OXYCODONE HCL IR 5 MG TAB (IMMEDIATE RELEASE) PO PRN (10:40)
[2019-12-31] MEDS ORDERED: ALUMINUM/MAGNESIUM SUSP 30 ML UDC PO PRN (10:40)
[2019-12-31] MEDS ORDERED: MAGNESIUM HYDROXIDE SUSP 30 ML UDC PO PRN (10:40)
[2019-12-31] MEDS ORDERED: bisacodyL 10 MG SUPP PR PRN (10:40)
--- NOTE | 2019-12-31 10:40 | Operative Report ---
Post Operative Report Pre & Post Diagnosis Operation Date: 12/31/19 08:15 Pre-Op Diagnosis: Right Hip Osteoarthritis Post-Op Diagnosis: Right Hip Osteoarthritis I identified the patient and participated in the time-out.: Yes Procedure Operation Date: 12/31/19 08:15 Actual Procedures p Right Total Hip Arthroplasty(Right) - Andrzej Greco MD Surgeon Andrzej Greco MD Furniture Duster Katie Paez Estimated Blood Loss 100 Findings Consistent with Post-Op Diagnosis Specimens bone cuts Anesthesia Type Spinal Complications none Disposition Accompanied Patient To Recovery: Yes Disposition: Recovery Room Description of Procedure As per 's note, I assisted in scrubbing and draping, certain parts of the procedure, and wound closure I attest to the content of the Intraoperative Record and any orders documented therein. Any exceptions are noted below.
--- NOTE | 2019-12-31 10:40 | Operative Report ---
Post Operative Report Pre & Post Diagnosis Operation Date: 12/31/19 08:15 Pre-Op Diagnosis: Right Hip Osteoarthritis Post-Op Diagnosis: Right Hip Osteoarthritis I identified the patient and participated in the time-out.: Yes Procedure Operation Date: 12/31/19 08:15 Actual Procedures p Right Total Hip Arthroplasty(Right) - Andrzej Greco MD Surgeon Andrzej Greco MD Nutter Up Triston Paez MD; Junior Herrera PA-C Estimated Blood Loss 100 Findings Consistent with Post-Op Diagnosis Specimens femoral head Complications none Disposition Accompanied Patient To Recovery: Yes Disposition: Recovery Room Description of Procedure I was present during the entire case assisting with positioning, prepping, draping, retraction, wound closure, dressing and abduction pillow placement. Fellow was also present. I served as an extra set of hands during the case. Please see Dr. Greco procedure note for specifics of the case. I attest to the content of the Intraoperative Record and any orders documented therein. Any exceptions are noted below.
--- NOTE | 2019-12-31 10:41 | Operative Report ---
Post Operative Report Pre & Post Diagnosis Operation Date: 12/31/19 08:15 Pre-Op Diagnosis: Right Hip Osteoarthritis Post-Op Diagnosis: Right Hip Osteoarthritis I identified the patient and participated in the time-out.: Yes Procedure Operation Date: 12/31/19 08:15 Actual Procedures p Right Total Hip Arthroplasty(Right) - Andrzej Greco MD Surgeon Andrzej Greco MD Foil Wrapper COLBY Herrera PA-C and Katie Paez MD Estimated Blood Loss 100 Findings Consistent with Post-Op Diagnosis Fluids 1400 cc Specimens Femoral head Anesthesia Type Spinal MAC Complications none Disposition Accompanied Patient To Recovery: No Disposition: Recovery Room Indications 79-year-old female with right hip arthritis refractory to conservative management. 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 I had a long discussion with her about the risks and benefits of surgery, alternatives to surgery, and expected outcomes. She understands that she is at elevated risk for infection because of her immunodeficiency. After reviewing all these she elected to proceed with surgery. All questions were answered. Informed consent was signed. Description of Procedure Patient was identified in the preoperative holding area where her surgical site was marked. She was given a spinal anesthetic and brought back to the main operating room she is placed the operating table and moved in the lateral decubitus position. All bony prominences were padded. Perioperative antibiotics were administered. She was prepped and draped in the normal sterile fashion. Prior to incision a multidisciplinary timeout was called. All in the room in agreement. Began by making a 16 cm long incision centered over the posterior aspect of the greater trochanter. We dissected down through subcutaneous tissues to the level of fascia. Fascia was incised in line with the incision. Charnley retractor was placed. Piriformis and short external rotators were dissected off the posterior aspect of the hip. A box cut was made in the capsule. Hip was dislocated. Femoral neck cut was made at 12 mm. The acetabulum was then exposed. Acetabular labrum was sharply excised. Contents of the cotyloid fossa were removed with electrocautery. We then began reaming with a size 48 mm reamer. We reamed her up to a size 56 mm cup. This gave us excellent bleeding cancellus bone circumferentially. The acetabulum was then irrigated out and reamings were placed in the cotyloid fossa. The size 56 outer shell for the pinnacle bedspread seamer carver cup was opened up. This was impacted into position with 25 degrees of anteversion and 40 degrees of lateral opening. A single cancellus screw was placed up into the ilium. Excellent fixation was obtained. Next the Ultrex polyethylene liner for 36 mm femoral head was opened up and impacted down into position. The locking mechanism was checked and it had engaged. At this point osteophytes along the anterior acetabular rim were removed with an osteotome and pituitary rongeur. The femoral neck was then exposed. Box osteotome was used to remove the lateral neck. The canal finder was used followed by the lateralizing reamer. We then broached her up to a size 6. The high offset neck with a +5 head was used to trial. Here her leg lengths seem just a little bit short. Therefore we upsized her to +8.5 mm head. Here her leg lengths were symmetric. Are lesser trochanter to center femoral head distance was 60 mm which is what we had measured prior to our femoral neck osteotomy. We then checked her stability. She was stable in extension and external rotation. Stable in the sleeper position. At 90 degrees of hip flexion could she could be internally rotated 60 degrees before levering out of the cup. I was very happy with the stability exam. Therefore the trial femoral components were removed. The cement restrictor was measured off the prosthesis and impacted down to the femoral canal. The femoral canal was irrigated out and dried. The cement which was [place] Simplex cement with tobramycin antibiotic was opened up and mixed on the back table. Once the cement was of appropriate doughy consistency it was injected into the intramedullary canal and pressurized. Excess cement was removed. We then inserted the size 6 polished high offset [place] femoral stem. This was held into position till the cemented cured in approximately 14 minutes. While we are waiting for the cement to cure, the wound was allowed to soak in sterile dilute Betadine solution. This was then suctioned out and the real size 36 mm femoral head with a +8.5 offset was opened up and was impacted down of the trunnion which had been cleaned and dried. Hip was atraumatically reduced. The wound was irrigated out. The periarticular injection was placed. We then began to close. The piriformis short external rotators and posterior capsule were repaired through bone tunnels in the posterior aspect of the greater trochanter with #2 Vicryl sutures. The fascia was run with a looped #1 PDS. The subcutaneous layer was closed with running #1 PDS. The dermal layer was closed with a running 2-0 Vicryl. Zip line was used for the skin followed by a Silverlon dressing and a compressive dressing. Patient's sedation was lifted, she was moved onto the hospital bed, leg lengths were checked and were symmetric, and then an abduction pillow was placed. She was then transferred recovery room in stable condition. Postoperative course: Patient be admitted to the floor overnight for pain control and monitoring. She will be weightbearing as tolerated. She received 24 hours of perioperative IV antibiotics followed by 5 days of oral antibiotics given her immunodeficiency while her wound is epithelializing. Aspirin for DVT prophylaxis. Summary of implants 1. [place] gription acetabular shell sector cup size 56 mm 2. [place] cancellus bone screw 6.5 mm x 40 mm 3. [place] Ultrex polyethylene acetabular liner, neutral, 36 mm inner diameter and 56 mm outer diameter 4. Cyndi [place] femoral stem size 6 high offset cemented 5. 13 mm cementralizer 6. Metal femoral head 36 mm diameter with a +8.5 mm offset 7. 2 batches of [place] Simplex antibiotic cement with tobramycin I attest to the content of the Intraoperative Record and any orders documented therein. Any exceptions are noted below.
--- NOTE | 2019-12-31 11:11 | XRay Report ---
XR hip 1V RT w pelvis CLINICAL HISTORY: IN PACU - A/P PELVIS and LATERAL HIP DEGENERATIVE ARTHRITIS COMPARISON: 12/08/2019 DISCUSSION: There are postsurgical changes of a total right hip arthroplasty. The acetabular and femo ral components appear well seated. There is no dislocation. There is gas present within the soft tiss ues consistent with recent surgery. IMPRESSION: Postsurgical changes of a total right hip arthroplasty. ACT 112: Negative or not required by law. Electronically signed by: Zack Shaw M.D. 12/31/2019 11:10 AM
[2019-12-31] MEDS: SODIUM CHLORIDE 0.9% 1000ML 1,000 ML IV SCH ×2 (11:52→20:51)
--- NOTE | 2019-12-31 12:35 | Anesthesiology Progress Note ---
Date of Service December 31, 2019 Anesthesia Post Procedure Vital Signs Vital Signs: Temp Pulse Pulse Resp BP Pulse Ox 12/31/19 12:00 36.4 C L 63 18 130/74 97 12/31/19 11:30 36.4 C L 61 18 105/67 99 12/31/19 11:15 36.3 C L 60 17 107/54 L 97 12/31/19 11:05 63 19 112/53 L 99 12/31/19 10:55 62 13 102/55 L 100 12/31/19 10:45 65 14 103/57 L 98 12/31/19 10:38 36.1 C L 68 10 L 108/55 L 99 12/31/19 06:48 36.8 C 70 18 160/82 H 97 Pain Intensity Right Hip: Pain Intensity: 0 Transfer of Care Handoff Completed per policy Notes Mental Status: alert / awake / arousable Patient Amnestic to Procedure: Yes Nausea / Vomiting: adequately controlled Pain: adequately controlled Airway Patency, RR, SpO2: stable & adequate BP & HR: stable & adequate Hydration State: stable & adequate Anesthetic Complications: no major complications apparent
[2019-12-31] MEDS: ACETAMINOPHEN 500 MG TAB PO SCH ×2 (13:28→22:04)
[2019-12-31] MEDS: Scopolamine CHECK PATCH PLACEMENT SCH (16:27)
[2019-12-31] MEDS: CEFAZOLIN 2000MG 2,000 MG/15 ML SYR IV SCH (16:27)
[2019-12-31] MEDS ORDERED: TRANEXAMIC ACID / 0.7% NACL 1,000 MG/100 ML BAG IV SCH (16:43)
[2019-12-31] MEDS: KETOROLAC TROMETHAMINE 15 MG/ML VIAL IV SCH (17:23)
[2019-12-31] MEDS: ASPIRIN 81 MG ECTAB PO SCH (20:49)
[2019-12-31] MEDS: DOCUSATE SODIUM 100 MG CAP PO SCH (20:49)
[2019-12-31] MEDS: SENNA 8.6 MG TAB PO SCH (20:49)
[2020-01-01] MEDS: Scopolamine CHECK PATCH PLACEMENT SCH ×3 (00:56→16:44)
[2020-01-01] MEDS: CEFAZOLIN 2000MG 2,000 MG/15 ML SYR IV SCH (00:56)
[2020-01-01] MEDS: KETOROLAC TROMETHAMINE 15 MG/ML VIAL IV SCH ×3 (00:57→11:06)
[2020-01-01 05:45] LABS: Hematocrit (blood only) 30.5 % (37-47); Hemoglobin 10.3 g/dL (12.0-16.0); Immature Granulocytes # (auto) 0.01 K/uL (0.00-0.02); Immature Granulocytes % (auto) 0.1 %; Lymphocytes % (auto) 7.8 %; Mean Corpuscular Hemoglobin 32.9 pg (25-34); Mean Corpuscular Hgb Conc 33.8 g/dL (32-36); Mean Corpuscular Volume 97.4 fL (80-100); Mean Platelet Volume 8.8 fL (7.4-10.4); Monocytes # (auto) 0.64 K/uL (0.11-0.59); Monocytes % (auto) 8.3 %; Neutrophils # (auto) 6.43 K/uL (1.4-6.5); Neutrophils % (auto) 83.8 %; Platelet Count 138 K/uL (130-400); RDW Standard Deviation 45.6 fL (36.4-46.3); Red Blood Count 3.13 M/uL (4.2-5.4); White Blood Count 7.68 K/uL (4.8-10.8)
[2020-01-01] MEDS: ACETAMINOPHEN 500 MG TAB PO SCH ×3 (06:16→21:16)
[2020-01-01 06:20] LABS: Calcium 8.4 mg/dl (8.5-10.1); Creatinine Clr Calc Pharmacy 51.7 ml/min; Est GFR (African American) 65.1; Est GFR (Non-African American) 56.2; Potassium 4.7 mmol/L (3.5-5.1)
[2020-01-01] MEDS ORDERED: dexAMETHasone 4 MG TAB PO SCH (08:00)
[2020-01-01] MEDS: CHOLECALCIFEROL 1,000 UNITS 25 MCG TAB PO SCH (08:28)
[2020-01-01] MEDS: LACTOBACILLUS ACIDOPHILUS (FLORANEX) TAB PO SCH (08:28)
[2020-01-01] MEDS: SIMVASTATIN 20 MG TAB PO SCH (08:28)
[2020-01-01] MEDS: CYANOCOBALAMIN 500 MCG TABLET (VITAMIN B-12) PO SCH (08:29)
[2020-01-01] MEDS: MULTIVITAMIN TAB PO SCH (08:29)
[2020-01-01] MEDS: DOCUSATE SODIUM 100 MG CAP PO SCH ×2 (08:29→20:34)
[2020-01-01] MEDS: ASPIRIN 81 MG ECTAB PO SCH ×2 (08:29→20:34)
[2020-01-01] MEDS: OMEGA-3 (PURIFIED FISH OIL) 1 GM CAP PO SCH (08:29)
--- NOTE | 2020-01-01 08:57 | Anesthesiology Progress Note ---
Date of Service January 01, 2020 Anesthesia Post Procedure Vital Signs Vital Signs: Temp Pulse Pulse Resp BP Pulse Ox 01/01/20 07:23 36.3 C L 72 16 112/67 95 01/01/20 03:41 36.8 C 68 16 106/61 99 12/31/19 23:09 36.5 C 67 16 109/62 96 12/31/19 19:52 36.4 C L 69 16 113/50 L 98 12/31/19 14:55 36.3 C L 65 16 108/72 94 12/31/19 14:00 61 16 114/60 99 12/31/19 13:10 66 16 130/64 95 12/31/19 12:30 36.8 C 65 18 123/72 94 12/31/19 12:00 36.4 C L 63 18 130/74 97 12/31/19 11:30 36.4 C L 61 18 105/67 99 12/31/19 11:15 36.3 C L 60 17 107/54 L 97 12/31/19 11:05 63 19 112/53 L 99 12/31/19 10:55 62 13 102/55 L 100 12/31/19 10:45 65 14 103/57 L 98 12/31/19 10:38 36.1 C L 68 10 L 108/55 L 99 Pain Intensity Right Hip: Pain Intensity: 3 Notes Mental Status: alert / awake / arousable Nausea / Vomiting: adequately controlled Pain: adequately controlled Airway Patency, RR, SpO2: stable & adequate BP & HR: stable & adequate Hydration State: stable & adequate Neuraxial Anesthesia: was administered and sensory block resolved Anesthetic Complications: no major complications apparent and Pt Satisfied with anesthetic care
[2020-01-01] MEDS ORDERED: MULTIVITAMIN TAB PO SCH (09:00)
[2020-01-01] MEDS ORDERED: NON-FORMULARY MEDICATION (Cinnamon Bark [Cinnamon] 1,000 MG) PO SCH (09:00)
[2020-01-01] MEDS ORDERED: NON-FORMULARY MEDICATION (Coenzyme Q10 [Co Q-10] 200 MG) PO SCH (09:00)
--- NOTE | 2020-01-01 12:16 | Orthopedic Progress Note ---
Date of Service January 01, 2020 Assessment & Plan (1) Osteoarthritis of right hip: S/P Right Total Hip Arthroplasty-Doing well Seen by Dr Greco this am. VS and BW are stable. Post-op dressings removed. Silverlon to remain intact for 2wks until f/u. Continue regular diet. Continue ice right hip. Continue PO pain medication. Continue PT/OT. WBAT with walker, SHP. Continue DVT prophylaxis with Teds, foot pumps, ASA 81mg BID. DC planning: Discussed with patient DC later today or tomorrow am. Patient prefers to stay overnight for further pain control and another round of PT/OT. Dr Greco aware. He is comfortable with DC tomorrow am after breakfast. Order will be placed for DC on 01-02-20 AM after breakfast. Present on Admission?: Yes Admission and Anticipated Discharge Date Admission Date: December 31, 2019 Anticipated date of discharge: 01/02/20 Subjective Patient drinking coffee sitting up in chair watching TV. She says she is fatigued, but doing well. Has pain but controlled with PO medication. Awaiting her 3rd dose of ABX post-op. Had AM PT/OT. Using walker to ambulate and fo llowing SHP. Saw Dr Greco this am who removed post-op dressings. She denies f/c/s, CP, SOB. She is antiicipating going home tomorrow after breakfast. Physical Exam Physical Exam: Sitting in chair watching TV. Right hip silverlon dressing intact. No S/S of infection. Mild discomfort with log rolling. NV intact B LE with B teds donned. Sensation intact to light touch. Palpable DP and PT pulses. Trace PE to R LE. 5/5 B EHL, TA, gastroc strength. Able to bend and straighten right knee. Results & Data ([facility]) Vital Signs (Past 12 Hours) Vital Signs Temp Pulse Resp BP Pulse Ox 01/01/20 11:40 36.8 C 69 14 140/81 93 01/01/20 07:23 36.3 C L 72 16 112/67 95 01/01/20 03:41 36.8 C 68 16 106/61 99 Laboratory Results 01/01/20 01/01/20 Range/Units 05:22 05:22 WBC 7.68 (4.8-10.8) K/uL RBC 3.13 L (4.2-5.4) M/uL Hgb 10.3 L (12.0-16.0) g/dL Hct 30.5 L (37-47) % MCV 97.4 (80-100) fL MCH 32.9 (25-34) pg MCHC 33.8 (32-36) g/dL RDW Std Deviation 45.6 (36.4-46.3) fL RDW Coeff of José 13.0 (11.5-14.5) % Plt Count 138 (130-400) K/uL MPV 8.8 (7.4-10.4) fL Immature Gran % (Auto) 0.1 % Neut % (Auto) 83.8 % Lymph % (Auto) 7.8 % [place] % (Auto) 8.3 % Eos % (Auto) 0.0 % Baso % (Auto) 0.0 % Neut # (Auto) 6.43 (1.4-6.5) K/uL Lymph # (Auto) 0.60 L (1.2-3.4) K/uL [place] # (Auto) 0.64 H (0.11-0.59) K/uL Eos # (Auto) 0.00 (0-0.5) K/uL Baso # (Auto) 0.00 (0-0.2) K/uL Immature Gran # (Auto) 0.01 (0.00-0.02) K/uL Sodium 145 (136-145) mmol/L Potassium 4.7 (3.5-5.1) mmol/L Chloride 115 H (98-107) mmol/L Carbon Dioxide 28 (21-32) mmol/L Anion Gap 2.0 L (3-11) BUN 20 H (7-18) mg/dl Creatinine 0.95 (0.6-1.2) mg/dl Est Cr Clr Drug Dosing 51.7 ml/min Est GFR ( Amer) 65.1 Est GFR (Non-Af Amer) 56.2 BUN/Creatinine Ratio 21.0 H (10-20) Glucose 147 H (70-99) mg/dl Calcium 8.4 L (8.5-10.1) mg/dl
[2020-01-01] MEDS: SENNA 8.6 MG TAB PO SCH (20:34)
[2020-01-01] MEDS: CeleBREX 200 MG CAP PO SCH (21:16)
[2020-01-02] MEDS: Scopolamine CHECK PATCH PLACEMENT SCH ×2 (00:32→08:17)
[2020-01-02] MEDS: ACETAMINOPHEN 500 MG TAB PO SCH ×2 (05:31→06:35)
[2020-01-02] MEDS: CeleBREX 200 MG CAP PO SCH (08:17)
[2020-01-02] MEDS: DOCUSATE SODIUM 100 MG CAP PO SCH (08:18)
[2020-01-02] MEDS: LACTOBACILLUS ACIDOPHILUS (FLORANEX) TAB PO SCH (08:18)
[2020-01-02] MEDS: ASPIRIN 81 MG ECTAB PO SCH (08:18)
[2020-01-02] MEDS: MULTIVITAMIN TAB PO SCH (08:18)
[2020-01-02] MEDS: CYANOCOBALAMIN 500 MCG TABLET (VITAMIN B-12) PO SCH (08:19)
[2020-01-02] MEDS: OMEGA-3 (PURIFIED FISH OIL) 1 GM CAP PO SCH (08:19)
[2020-01-02] MEDS: CHOLECALCIFEROL 1,000 UNITS 25 MCG TAB PO SCH (08:19)
[2020-01-02] MEDS: SIMVASTATIN 20 MG TAB PO SCH (08:20)
--- NOTE | 2020-01-02 09:19 | Orthopedic Progress Note ---
Date of Service January 02, 2020 Assessment & Plan (1) Osteoarthritis of right hip: S/P Right Total Hip Arthroplasty POD 2-Doing well VS are stable. Silverlon to remain intact for 2wks until f/u. Continue regular diet. Continue ice right hip. Continue PO pain medication. Continue PT/OT. WBAT with walker, SHP. Continue DVT prophylaxis with Teds, foot pumps, ASA 81mg BID. DC planning: DC this AM after PT. Patient has a ride on their way to pick her up. Medications sent to her pharmacy. Discussed DC instructions. Admission and Anticipated Discharge Date Admission Date: December 31, 2019 Subjective Patient walking in mig[place] with PT. No issues. Ready to go home this AM. Denies CP, SOB, F/C/S, N/V, lightheadedness or dizziness. Physical Exam Physical Exam: Limited exam as pt was walking in [place] with PT. A and O x 3. B LE with syed hose. Min swelling to legs. NV intact to B LE. 5/5 B EHL, TA, gastroc strength. Sensation intact to light touch. Calves soft. Silverlon dressing intact. Results & Data ([facility]) Vital Signs (Past 12 Hours) Vital Signs Temp Pulse Resp BP BP Pulse Ox 01/02/20 09:09 36.9 C 72 16 127/63 128/58 L 99 01/02/20 07:25 36.9 C 72 16 128/58 L 99 01/01/20 23:08 36.7 C 58 L 16 120/71 95
--- NOTE | 2020-01-04 11:59 | Discharge Summary ---
Date of Service January 02, 2020 Admission HPI Per Admitting Provider History of Present Illness (including history relevant to procedure): This 79-year-old female presents the clinic today for preoperative history and physical examination. Patient has persistent pain in the groin of the right hip that is nonradiating. It bothers her especially getting in and out of a car. Walking long distances are difficult for her. Inclines are worse for her than declines. She has tried taking NSAIDs and received multiple steroid injections into her hip under ultrasound guidance, both of which have given her only minimal relief. She denies any numbness or tingling, but states that she is having great difficulty performing activities of daily living due to hip pain. 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 Rectocele PERSONAL HISTORY OF COLONIC POLYPS UNSPECIFIED HEARING LOSS RAYNAUD'S SYNDROME Overweight BACK PAIN, CHRONIC ROUTINE GENERAL MEDICAL EXAMINATION AT A HEALTH CARE FACILITY History of dysplastic nevus Mixed dyslipidemia Cataract CAD (coronary artery disease), [place] coronary artery Former smoker Arthritis Pre-diabetes Family history of colon cancer Glaucoma suspect Hx of thyroid nodule History of basal cell carcinoma Hx of seborrheic keratosis Cystocele Spondylolisthesis Lumbar spine pain Senile hyperkeratosis Benign neoplasm of skin Actinic keratosis Carpal tunnel syndrome, bilateral Ulnar neuropathy Osteopenia Procedure History Procedure Procedure Date Comments Salpingo-oophorectomy - left, at time of ruptured ectopic, with IUD in; 1971 pilonidal cystectomy wisdom teeth Chemotherapy Shave biopsy and cauterization of skin 10/19/2019 DXA of axial and appendicular skeleton 03/26/2019 - IMPRESSION: Z-sore of 0.0, this patients BDM is considered within nomral limits relative to their age, Even so, they may be considered osteopenic or osteoporotic, which is normal for this age. Mammogram - screening 03/02/2019 - IMPRESSION: No mammographic evidence of malignancy. 1 year screening is recommended Upper GI endoscopy 07/15/2018 - IMPRESSION: 1) Z-line regular, 41 cm from the incisors2) Normal esophagus3) Normal middle third of esophagus. Biopsied4) Normal stomach5) Normal examined duodenum Electrodesiccation with curettage 07/10/2018 Shave biopsy of skin 06/30/2018 Mammogram - screening 02/26/2018 - Impression: No mammographic evidence of malignancy. 1 year screening is recommended Chest x-ray 09/21/2017 - No acute process Ultrasound 08/22/2017 - SOFT TISSUE HEAD/NECK THYROIDIMPRESSION: Subcentimeter colloid cysts and a low suspicion 8mm solid hypoechoic left thyroid nodule are noted without suspicous thyroid nodules. Punch biopsy of skin 07/04/2017 Colonoscopy 06/28/2017 Colonoscopy 06/20/2017 - IMPRESSION: One 5 mm polyp in the ascending colon, removed with a hot snare. Resected and retrieved. The examined portion of the ileum was normal. Biopsi ed.Normal mucosa in the entire examined colon. Biopsied. Mammogram 02/25/2017 - No mammogoraphic evidence of malignancy. A 1 year screening mammogram is recommended. Chest CT 11/14/2016 - No acute intrathoracic findings. No evidence of pathologic adenopathy. CT of abdomen and pelvis 11/14/2016 - 1. There are no pathologically enlargel lymph nodes identified in the abdomen or pelvis.2. The spleen is normal size.3. Moderate constipation. Mammogram - screening 02/20/2016 - Impression: There is no mammographic evidence of malignancy. A 1 year screening mammogram is recommended. The patient will receive written notification of the results. Phacoemulsification of cataract with intraocular lens implantation of the Left eye 01/31/2016 Skeletal survey - adult 12/26/2015 - Impression: No overtly suspicious lytic lesions identified by skeletal survey. A few nonspecific but low suspicion lucent lesions within the calvarium. Phacoemulsification with intraocular lens implantation right eye 12/20/2015 CT of abdomen and pelvis 11/22/2015 - 1. Question of multiple tiny lucent lesions seen scattered throughout the visualized osseous structures. However, this could be due to the patient's osteopenia. Recommend f/u skeletal survey to exclude a multiple myeloma.2. Otherise, no acute process within the abdomen or pelvis.3. No lymphadenopathy. CT of chest 11/22/2015 - Negative study. Improved from the prior exam. Thyroid imaging--ultrasound 10/28/2015 - Multinodular throid gland. No susupicious nodules are visualized. CXR - Chest X-ray 09/21/2015 - No acute process. Colonoscopy 02/23/2015 - Impression: One 8 mm polyup in the descending colon. Resected and retrieved.Recommendations: Await pathology results. Mammogram - screening 02/16/2015 - Impression: There are no mammographic evidence of malignancy. A 1 year screening mammogram is recommended. The patient will receive written nbotification of the results. Pap smear for cervical cancer screening 01/26/2015 - Diagnosis: negative for intraepithelial lesion or malignancy Biopsy--bone marrow biopsy right hip 10/06/2014 PET scan 10/04/2014 - Pet CT:Impression: There is no FDG avid lymphadenopathy identified on todays examination. There has been no significant change from 01/25/2014.Retroperitoneal infiltration/soft tissue stranding is similar to prev ious and likely reflects treated disease. There is no discernible FDG uptake at the site.The lungs are clear.The spleen is normal in size.Additional changes as above. Bone marrow 09/30/2014 - 20% celluar bone marrow with trilineage hematopoiesisNo lymphorm identified Chest x-ray 09/27/2014 - Impression: no active disease in the chest Chest x-ray 08/16/2014 - Impression: near complete resolution of small bilateral pleural effusions shown on prior examInterval improvements in suspected pulmonary edema. Chest x-ray 08/01/2014 - Impression: Small bilateral pleural effusions with mild interiobular septal thickening consistent with mild pulmonary edema.Mild bibasilar opacilitties. The appearance favors atelectasis, although pneumonia could appear similar. Chest x-ray 07/30/2014 - 1) slighlty improved B/L plueral effusions.2) Subtle progressive infilitrate right hemithorax Chest x-ray 07/26/2014 - Impression: Small pleural effusions and bibasilar consolidative change. This could reflect pneumonia as clinically queried. Radiographic follow-up to resolution is recommended.Chronic parenchymal abnormalities as above. The upper lobes appear clear. Chest x-ray 07/23/2014 - a/p portable chest Impression: No pneumothoraxBibasilar subsegmental atelectasisRight infrahilar hazy opacity which may be due to the post bronchoscopy changes. Bronchial brushings sample 07/23/2014 - Benign bronchial epitheliumNo lymphoid infiltrate identified.No fungal organisms or pneuocystis identified on gms stainNo malignant cells seen. Bronchial washing 07/23/2014 - Benign bronchial epithelium.No lymphoid infiltrate or inflammation identifiedNo malignant cells seen. Chest x-ray 07/22/2014 - Impressions: Improving bibasilar linear densities suggesting resolving subsegmental atelectasis. No new focal lung consolidations identified. Echocardiogram 07/21/2014 Chest x-ray 07/19/2014 - Impression: Linear bibasilar opacities consistent with atelectasis.Hazy right basilar opacities. While indeterminate, this probably represents atelectasis rather than pneumonia. Procedure 07/19/2014 - CT aniogram of the chestImpression: No definite evidence for pulmonary embolus.Interlobular septal thickening and faint ground-glass perihilar airspace opacities. Findings favor a mild interstitial pulmonary edema. However, an atypical pneumonia could also have a similar appearance.Linear bibasilar densities favor subsegmental atelectasis.A few prominent mediastinal lymph nodes which havew increased in size compared to the prior study. However, theese still remain subcentimeter in short axis diameter. Follow-up is recommended to exclude the possibility of recurring lymphoma. Chest x-ray 07/17/2014 - No acute process Knee X-ray 07/04/2014 - Chronic appearing changes. No acute fracture or dislocation. Chest x-ray 06/24/2014 - normal Mammogram 02/15/2014 - No malginancy. One year screening recommended. Epidural steroid injection 11/11/2013 - Caudal VEENA Insertion of implantable venous access port 2013June 2013 Bone marrow biopsy 06/09/2013 Mammogram 02/12/2013 - WNL DEXA 07/03/2010 - -1.5 in both femurs Colonoscopy & polypectomy 04/18/2010 - hyperplastic polyp sigmoid Mohs surgery 2006 - nose and left jawline, for SCC and BCC colonoscopy normal 05/04/2005 - clear Birthmark 1971 - left scalp - excision Allergies and Sensitivities: Percocet 5/325(N/V) Augmentin(Diarrhea) Paxil(tachycardia) Paxil(nervous) Paxil(revved up) Paxil(insomnia) losartan(dizziness, cotoney mouth, didn't feel well.) lisinopril(cough) Social history: Patient states she consumes approximately 5 alcoholic beverage per week. At this time she denies any tobacco or illicit drug use Family history: Alzheimer's disease, cancer, dementia, myocardial infarction, hypertension, hyperlipidemia, hypothyroidism, rheumatic heart disease, stroke and thrombocytopenia Current Home Meds: (Last Updated 12/07 12:55) Probiotic Intestinal PO Daily(Vitamin D3 2000 intl units oral tablet) 2,000 Int_Unit PO Daily(Cinnamon 500 mg oral capsule) 500 mg PO Daily 1000mg po daily(Vitamin B12 1000 mcg oral tablet) 1,000 mcg PO Daily multivitamin 1 tab PO Dailypolyunsaturated fatty acids (Fish Oil 1200 mg oral capsule) 1,200 mg PO Daily(simvastatin 20 mg oral tablet) TAKE 1 TABLET BY MOUTH AT BEDTIME(Coenzyme Q10 200 mg oral capsule) 1 tab PO Daily Initial Wt: 12/07 85.0 kg 187 lb Principal Diagnosis Right Hip Osteoarthritis Discharge Data Allergies Allergy/AdvReac Type Severity Reaction Status Date / Time oxycodone Allergy Mild VOMITING Verified 12/31/19 06:26 amoxicillin AdvReac Mild diarrhea Verified 12/31/19 06:26 clavulanic acid AdvReac Mild diarrhea Verified 12/31/19 06:26 lisinopril AdvReac Mild GI SYMPTOMS Verified 12/31/19 06:26 losartan AdvReac Mild GI SYMPTOMS Verified 12/31/19 06:26 paroxetine AdvReac Mild GI SYMPTOMS Verified 12/31/19 06:26 Consultations 01/01/20 08:00 Consult Case Management - Discharge Planning Routine Procedures Performed Operation Date: 12/31/19 08:15 Actual Procedures p Right Total Hip Arthroplasty(Right) - Andrzej Greco MD Hospital Course (1) Osteoarthritis of right hip: 79 yr old female underwent Right Total Hip Arthroplasty by Dr Greco on 12-31-19. She tolerated procedure without complications. She was admitted to the floor. Post-op course fairly unremarkable. VS and POD 1 BW wnl. She tolerated PO fluids and diet. Her pain was controlled on PO pain meds. She received 24hr post-op abx. She tolerated a few sessions of PT/OT for instructions on SHP and WBAT to RLE with walker. Her post dressings were removed and silverlon intact to remain on until f/u appt. In house DVT prophylaxis included teds, foot pumps, and asa. On POD 2 she was deemed stable for DC to home with HHPT in care of her family. She will continue with SHP and WBAT with walker to R LE. Silverlon dressing to remain intact. DVT prophylaxis to include teds, and ASA 81mg bid x 6wks. 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 She has a 2wk follow-up scheduled in the office. She was instructed to call the office or go the ED with problems, questions, or concerns. Please see below for further detailed DC instructions. Total Time Total Time Spent Total Time Spent (In Minutes): 20min Discharge Plan Discharge Items Patient Disposition: Home - Home Health Services Reason For Visit: Right Hip Osteoarthritis Discharge Diagnosis: Right Hip Osteoarthritis Activity: As commented below Lifting: None Bathing: Keep incision dry Bathing Comment: May shower tomorrow Sexual Activity: Wait until after follow-up appointment Exercise/Sports: Wait until after follow-up appointment Driving/Machine Use: No driving until cleared by job training specialist Weightbearing: Right weightbearing Weightbearing Comment: as tolerated with walker assistance Non-emergency contact: Surgeon Call non-emergency contact if: you have any medication questions, your pain is not controlled, your wound has increased drainage and your wound pain has increased Follow-up/Referrals: Pierre Price [Primary Care Provider] - Andrzej Greco MD [Physician] - 01/15/20 1:00 pm Diet: Regular Addtl Attending Provider Instructions: Post-operative Instructions Dear Patient and Family/Friends, Before you are discharged from the hospital, it is important to know what to expect when you get home after surgery. To that end, we have created this sheet of discharge instructions which covers many commonly asked questions. Make sure you go through this sheet in its entirety with your nurse before you are discharged. Please note that we will go over the specifics of your surgery and recovery when you return for your first post-operative visit. Sincerely, Dr. Greco Medications 1. Tramadol 50 mg: take 1-2 tabs by mouth every 4-6 hours as needed for pain control. This will be sent to your pharmacy. 2. Diclofenac Sodium 75 mg: take 1 tab twice daily for 30 days post operatively. This will be sent to your pharmacy with 1 refill. 3. Keflex 500 mg: take 1 tab 3x/daily for 5 days post operatively. This will be sent to your pharmacy. 4. Aspirin 81 mg: take 1 tab twice daily for 30 days post operatively for blood clot prevention. Please purchase. 5. Extra Strength Tylenol 500 mg: take 2 tabs every 6-8 hours as needed for post operative pain relief. Please purchase. Pain Expect to be in a fair amount of pain after surgery. Remember, our goal is not to eliminate your pain, but to make it tolerable. It is a good idea to stay ahead of your pain by taking the medications you were prescribed once you get home. Typically, the pain starts improving 3-7 days after surgery. You should start weaning off the narcotic pain medication (oxycodone, hydrocodone, hydromorphone, morphine) as soon as your pain improves. Please call our office if your pain is not adequately controlled. Ice Ice your operative site at least 5 times a day for 15-30 minutes at a time. Make sure you have a thin cloth between the ice or cooling unit and your skin to prevent carrera bite. This is especially important if you received a nerve block. Continue icing your operative site for the first 5-7 days after surgery, then as needed. Diet/Nausea/Vomiting Start by drinking clear liquids and eating crackers. If you can tolerate this, then you may resume your normal diet. If you feel nauseated or vomit, take Zofran/ondansetron (if prescribed). Please call our office if you have intractable nausea or vomiting, or, if after hours, you may go to the Emergency Room for help. Constipation Constipation is a common side effect of narcotic pain medication. If you have not had a bowel movement within 2 days after surgery, we recommend purchasing an over the counter laxative such as Milk of Magnesia, Dulcolax, or Miralax from a local pharmacy, and taking it as instructed. Call our clinic if any questions. Nerve block The anesthesia team sometimes places a nerve block to help with post-operative pain control. This results in significant numbness and inability to move the extremity. The nerve block usually wears off in 8-12 hours, but sometimes can last up to 24 hours. Please call our office if you are still unable to move your extremity after 24 hours, unless you received a pain pump to take home. Ne rve blocks typically wear off quickly, so start taking pain medication as soon as you start feeling soreness near your surgical site. Weight bearing and Range of Motion. Weightbear as tolerated with a walker. Please follow Standard Hip Precautions. Physical therapy You will start with home health physical therapy. A prescription for outpatient therapy will be given at your first post-operative appointment. Wound care and showering We will inspect your wound at your first post-operative visit, and may do a bk ssing change at that time. Most patients will be in a water-proof dressing that is removed 14 days after surgery. It is normal to see some dried blood on the dressing. Do not remove your dressing, paper strips or sutures yourself unless you are given permission. Showering is allowed the day after surgery. Do not scrub or remove any dressings. The wound should not be submerged underwater (i.e. in a bathtub or pool) until 4 weeks after surgery MANUEL stockings If you were given white stockings, these are to be worn at all times except to shower (on both legs) for the first 2 weeks after surgery. Driving You may not drive while taking narcotic pain medication or while in a cast, splint, sling or brace. You, the patient, need to make the final determination about when you are safe to drive, however, the earliest you may consider driving after surgery is below: Hand/Wrist/Elbow Surgery: 3 days Shoulder Surgery: 2 weeks Hip,/Knee/Ankle Surgery: 4 weeks Fracture repair: 6 weeks Return to Work Your return to work depends on what surgery was done and what type of work you do. Please bring any paperwork your employer needs completed to your first post-operative visit. Also, bring a description of your job duties, as this helps us to understand what risks you may face at work. Travel Avoid long distance travel (greater than 1 hour) in airplanes and cars for the first 6 weeks after surgery. If you must travel, you need to have a Doppler ultrasound done before you travel to rule out a blood clot in your legs. Follow-up You should have a follow-up appointment already scheduled 1-2 days after surgery. If not, please contact our office to make this appointment before you leave the hospital. When to call the office It is normal to have swelling and bruising in the limb that was operated on. This will improve with time. It is also normal to have fevers for the first 2 days after surgery. Reasons you should call your doctor include: Uncontrolled pain; Nausea, vomiting, or constipation that does not improve with medication; Fevers over 101.5, chills, sweats; Drainage or bleeding from the wound; Foul odor; Spreading areas of redness; Any other concerns Pending Studies at Discharge: No Stand-Alone Forms: My [facility], Opioid Pain Management Medications and DC Order Prescriptions: New aspirin 81 mg Tablet,Delayed Release (Dr/Ec) 81 mg PO BID 30 Days Qty: 60 RF: 0 tramadol 50 mg tablet 50 mg PO Q6H MDD 6 tabs Qty: 30 RF: 0 diclofenac sodium 75 mg tablet,delayed release (DR/EC) 75 mg PO BID 30 Days Qty: 60 RF: 1 cephalexin [Keflex] 500 mg capsule 500 mg PO TID 5 Days Qty: 15 RF: 0 Continued omega 5-niq-uzu-fish oil [Fish Oil] 1,000 mg (120 mg-180 mg) capsule 1 cap PO QAM RF: 0 simvastatin 20 mg tablet 20 mg PO QAM RF: 0 multivitamin [Multiple Vitamins] tablet 1 tab PO QAM RF: 0 cholecalciferol (vitamin D3) 2,000 unit capsule 2,000 units PO QAM RF: 0 Probiotic (B. coagulans) 10 billion cell capsule,delayed release(DR/EC) 30 cell PO QAM RF: 0 cinnamon bark [Cinnamon] 500 mg capsule 1,000 mg PO QAM RF: 0 coenzyme Q10 [Co Q-10] 200 mg Capsule 200 mg PO QAM RF: 0 cyanocobalamin (vitamin B-12) 1,000 mcg Tablet 1,000 mcg PO QAM RF: 0 hydrocodone-acetaminophen [[place]] 5-325 mg tablet 1 - 2 tab PO Q4H PRN (Reason: pain, initial therapy, max 6 tabs daily) Qty: 10 RF: 0 Discharge Orders: Discharge Order (Routine); Ordered 01/02/20 Ordered By: Angie Tenorio/Other Patient Handouts: DVT Post Op Prevention Admission Data Admit Date/Time: 12/31/19 10:40 Attending Provider: Andrzej Greco Admit Provider: Andrzej Greco Primary Care Provider: Pierre Price. Other Providers: [facility],Home Health Other Interventions: Discharge Summary Assessment (RN) Last Done: 01/02/20 09:09
== END 2020-01-02 10:23 | disposition home health service (06) ==
LOC: ASU 06:10 → 3E 06:10